=== PATIENT | female | born 1980 | race Caucasian/White ===

== ENCOUNTER 2021-12-02 16:57 | Emergency (ER) | payer SELFPAY ==
[2021-12-02 17:15] VITALS: BP 126/87; PULSE 106; RESP 18; TEMP 36.6; O2SAT 96; BMI 24.5
--- NOTE | 2021-12-02 18:36 | ED_ITS ---
HPI - General Adult General Stated complaint: Finger Infection Time Seen by Provider: 12/02/21 17:44 Source: patient History of Present Illness HPI narrative: Patient is a 41-year-old who says everyone small she just gets annoyed by her fingernails on bites them all off. Few days ago, she bit off all of her fingernails, and then a day or 2 later she noted that she was getting pain around her left middle finger at the cuticle. She did not think a whole lot of it but woke up in the middle the night with throbbing pain in that area. By the next day, she says that it was read and swollen, and today she says that there is discoloration along the cuticle and now the end of her finger is all red and swollen and very tender to touch. No fevers or systemic complaints. Denies other significant medical history. Related Data Previous Rx's Medication Instructions Recorded dextroamphetamine-amphetamine 30 15 mg PO TID #45 tabs 11/01/21 mg tablet Allergies Allergy/AdvReac Type Severity Reaction Status Date / Time Cephalosporins Allergy Mild Verified 09/27/21 13:14 penicillin V Allergy Mild Verified 09/27/21 13:14 Cat hair extract Allergy Mild hives, Uncoded 09/27/21 13:14 sneezing Review of Systems Status of ROS: Reports: 6 or more systems reviewed and unremarkable except as noted in History and below [facility] Social History Smoking Status: Former smoker Exam Narrative: Exam Narrative: Vital signs reviewed In general, an alert, nontoxic woman. Head: Normocephalic, atraumatic. Neck: Supple. Extremities: Examination of the left hand shows a paronychia of the left f negro. She has erythema and swelling of the distal digit, distal to the D IP joint. She has a lot of tenderness of the finger pad as well as the area around the nail bed. The D IP joint itself is uninvolved. Skin: Warm dry well perfused. Const: Vital Signs, click to edit/add: Vital Signs - 24 hr 12/02/21 17:15 Temperature 98 F Pulse Rate [Pulse Oximeter] 106 H Respiratory Rate 18 Blood Pressure [Ri ght Upper Arm] 126/87 Pulse Oximetry 96 Oxygen Delivery Me thod Room Air Course Course Hospital Course: She clearly has a paronychia man associated cellulitis. I am a little concerned she may have a developing felon because of the tenderness she has over the finger pad, but for the time being, I recommended that we I and D the paronychia, start her on antibiotics and see how she does over the next 24 hours. I reviewed with her that if that finger pad area is not improving, she may need additional treatment in the form of an I and D there. However, given that this clearly started as a paronychia, and she has clear purulence there, I am going to drain that area and see if the rest will clear with antibiotics. She is comfortable with that. Procedure note: Area over the paronychia was anesthetized with freezing spray, and then I used a 15. Blade to incise the area with most purulence. Pus was drained, bandage was applied along with some antibacterial ointment. She tolerated this well without immediate complication. She does note that the finger feels significantly better after this drainage, including the finger pad. With her allergy profile, I am going to prescribe doxycycline. Ibuprofen or Tylenol, warm soaks. Return as outlined above. Vital Signs Vital signs: Initial Vital Signs Temperature 98 F 12/02/21 17:15 Temperature Source Temporal Artery Scan 12/02/21 17:15 Pulse Rate 106 H 12/02/21 17:15 Respiratory Rate 18 12/02/21 17:15 Blood Pressure 126/87 12/02/21 17:15 Blood Pressure Mean 100 12/02/21 17:15 Blood Pressure Position Supine 12/02/21 17:15 Pulse Oximetry 96 12/02/21 17:15 Oxygen Delivery Method 12/02/21 17:15 Vital Signs Temperature 98 F 12/02/21 17:15 Pulse Rate 106 H 12/02/21 17:15 Respiratory Rate 18 12/02/21 17:15 Blood Pressure 126/87 12/02/21 17:15 Pulse Oximetry 96 12/02/21 17:15 Oxygen Delivery Method 12/02/21 17:15 Temperature 98 F 12/02/21 17:15 Pulse Rate 106 H 12/02/21 17:15 Respiratory Rate 18 12/02/21 17:15 Blood Pressure 126/87 12/02/21 17:15 Pulse Oximetry 96 12/02/21 17:15 Oxygen Delivery Method 12/02/21 17:15 Discharge Plan Discharge Clinical Impression: Paronychia of finger, Cellulitis Patient Disposition: Home, Self-Care Condition: Improved Instructions: Paronychia (ED), Cellulitis (ED) Additional Instructions: Antibiotic as prescribed. Warm soaks. If your finger is not feeling better over the next 24 hours, return for re-evaluation; you may need additional treatment. Prescriptions: No Action dextroamphetamine-amphetamine 30 mg tablet 15 mg PO TID Qty: 45 0RF Rx Instructions: 15 mg 3x/day, administer doses at least 4-6 hours apart Follow Up/Referrals: Remington Ann MD [Primary Care Provider] - Stand Alone Forms: [employer] Info Instructions
== END 2021-12-02 18:44 | disposition home or self-care (01) ==
LOC: ED 18:40
PROVIDERS: Emergency Provider Emergency Medicine; PCP Family Medicine
DX: L03.012 Cellulitis of left finger (principal)
CPT/HCPCS: 99282; 99283

== ENCOUNTER 2021-12-03 11:01 | Emergency (ER) | payer SELFPAY ==
[2021-12-03 11:04] VITALS: BP 152/124; PULSE 94; RESP 16; TEMP 36.9; O2SAT 96; BMI 24.5
[2021-12-03] MEDS: diphenhydrAMINE 25 MG CAPSULE PO (11:28)
--- NOTE | 2021-12-03 11:54 | ED_ITS ---
HPI - General Adult General Date Seen: 12/03/21 Chief complaint: Allergic Reaction Stated complaint: Allergic reaction to medication hard to swallow Time Seen by Provider: 12/03/21 11:07 Source: patient History of Present Illness HPI narrative: Patient is a 41-year-old who I saw yesterday for of paronychia him on her left 3rd finger. This was incised and drained, and I started her on doxycycline for surrounding cellulitis. She does say the finger is feeling significantly better, but today when at work she says that she started to feel like she was having difficulty swallowing. She became concerned that this was an allergic reaction to the doxycycline. She started to feel dizzy and anxious, presents for possible allergic reaction. Did not take any medications before arrival. No wheezes, hives, rash, vomiting or other symptoms. Related Data Previous Rx's Medication Instructions Recorded dextroamphetamine-amphetamine 30 15 mg PO TID #45 tabs 11/01/21 mg tablet clindamycin HCl 300 mg capsule 300 mg PO TID #21 caps 12/03/21 Allergies Allergy/AdvReac Type Severity Reaction Status Date / Time Cephalosporins Allergy Mild Verified 09/27/21 13:14 penicillin V Allergy Mild Verified 09/27/21 13:14 doxycycline Allergy Verified 12/03/21 11:08 Cat hair extract Allergy Mild hives, Uncoded 09/27/21 13:14 sneezing Review of Systems Status of ROS: Reports: 10 or more systems reviewed and unremarkable except as noted in History and below [facility] Social History Smoking Status: Former smoker Do you use any of these nicotine containing products: None Second hand tobacco smoke exposure: No How often do you have a drink containing alcohol: never How often do you have six or more drinks on one occasion: Never AUDIT-C Alcohol total score: 0 Non-prescribed substance use: denies use service: No Exam Narrative: Exam Narrative: Vital signs as noted above. In general, an alert, well-appearing patient. Head: Normocephalic, atraumatic. Eyes: Pupils are equal reactive. Extraocular movements are full. Conjunctivae are normal. ENT: Mucous membranes are moist. Throat is normal. Neck: Supple without lymphadenopathy. Heart: Regular rate and rhythm. No murmur or rub. Lungs: Clear bilaterally. No increased work of breathing, crackles or wheezes. Abdomen: Soft and nontender. No organomegaly. Extremities: Well perfused. No edema. No calf tenderness. Pulses intact. Neurologic: Patient is alert and oriented to person and place. Speech is fluent. Face is symmetric. Moves all extremities equally. Affect: Normal. Skin: Warm and dry. Well perfused. Const: Vital Signs, click to edit/add: Vital Signs - 24 hr 12/03/21 11:04 Temperature 98.4 F Pulse Rate [Left P ulse Oximeter] 94 Respiratory Rate 16 Blood Pressure [Le ft Upper Arm] 152/124 H Pulse Oximetry 96 Oxygen Delivery Me thod Room Air Documenting provider has reviewed patient's vital signs: yes Course Course Hospital Course: Patient was given 25 mg of oral Benadryl. On exam, no objective findings suggesting allergic reaction, no evidence of intraoral swelling, stridor, wheezing, flushing or hives. Will observe here for a bit. Reevaluation(s) Reevaluation #1: On recheck, patient notes that ?3/4 of her panic attack is improved. She says her chest still feels kind of tight and it still feels kind of hard to swallow, but acknowledges that when she got here she knew that she was started have a panic attack. She says that she just got very scared when her throat got dry and it started to feel hard to swallow. She is comfortable trying some Ativan here to see if we can get better control of her anxiety and panic. I do think this was a significant contributor to her symptoms today and I think she would agree with that. She continues to remain free of any objective findings of allergic reaction. Vital signs are stable. Reevaluation #2: Patient is feeling improved. Much less tearful and anxious. She notes that she has not had a panic attack for about 6 months but this definitely set her off today. She does feel that she was suffering side effects from medication. I do not think I would call this a true allergic reaction. I will switch her to clindamycin because I think she is very uncomfortable with the side effects from the doxycycline. Her finger is feeling significantly improved. If that changes she should come back for re-evaluation. If she were to develop any symptoms of true allergies such as hives, wheezing, etcetera, return for re-evaluation. Vital Signs Vital signs: Initial Vital Signs Temperature 98.4 F 12/03/21 11:04 Temperature Source Temporal Artery Scan 12/03/21 11:04 Pulse Rate 94 12/03/21 11:04 Pulse Rhythm 12/03/21 11:04 Pulse Strength 3+ Normal 12/03/21 11:04 Respiratory Rate 16 12/03/21 11:04 Blood Pressure 152/124 H 12/03/21 11:04 Blood Pressure Mean 133 12/03/21 11:04 Pulse Oximetry 96 12/03/21 11:04 Oxygen Delivery Method 12/03/21 11:04 Vital Signs Temperature 98.4 F 12/03/21 11:04 Pulse Rate 94 12/03/21 11:04 Respiratory Rate 16 12/03/21 11:04 Blood Pressure 152/124 H 12/03/21 11:04 Pulse Oximetry 96 12/03/21 11:04 Oxygen Delivery Method 12/03/21 11:04 Temperature 98.4 F 12/03/21 11:04 Pulse Rate 94 12/03/21 11:04 Respiratory Rate 16 12/03/21 11:04 Blood Pressure 152/124 H 12/03/21 11:04 Pulse Oximetry 96 12/03/21 11:04 Oxygen Delivery Method 12/03/21 11:04 Discharge Plan Discharge Clinical Impression: Medication intolerance, Anxiety Patient Disposition: Home, Self-Care Condition: Improved Instructions: Anxiety (ED) Additional Instructions: Return for new symptoms such as hives, wheezing, etc.. Otherwise, we will switch to clindamycin. If your finger is worsening, return for re-evaluation. Prescriptions: New clindamycin HCl 300 mg capsule 300 mg PO TID Qty: 21 0RF No Action dextroamphetamine-amphetamine 30 mg tablet 15 mg PO TID Qty: 45 0RF Rx Instructions: 15 mg 3x/day, administer doses at least 4-6 hours apart Follow Up/Referrals: Remington Ann MD [Primary Care Provider] - Stand Alone Forms: [employer] Info Instructions
[2021-12-03] MEDS: LORazepam 1 MG TABLET PO (12:10)
== END 2021-12-03 13:10 | disposition home or self-care (01) ==
PROVIDERS: Emergency Provider Emergency Medicine; PCP Family Medicine
DX: F41.9 Anxiety disorder, unspecified (principal); T36.4X5A Adverse effect of tetracyclines, initial encounter; Y92.019 Unspecified place in single-family (private) house as the place of occurrence of the external cause
CPT/HCPCS: 99283; A9270

== ENCOUNTER 2022-12-02 08:56 | Emergency (ER) | payer OTHER, SELFPAY ==
[2022-12-02 09:04] VITALS: BP 128/86; PULSE 70; RESP 18; TEMP 36.6; O2SAT 100; BMI 26.6
--- NOTE | 2022-12-02 09:47 | ED_ITS ---
HPI - General Adult General Date Seen: 12/02/22 Chief complaint: Dizziness/Vertigo Stated complaint: high blood pressure Time Seen by Provider: 12/02/22 09:00 Source: patient Mode of arrival: ambulatory Limitations: no limitations History of Present Illness HPI narrative: Patient is a 42-year-old female presenting to the emergency department for hypertension and lightheadedness. She states she woke up this morning feeling lightheaded and dizzy. Do this she checked her blood pressure which she states was elevated. She checked it multiple times and the Highest she got was 175 systolic. she was concerned so she came to the emergency department to be evaluated because she was still feeling lightheaded. At this time she still feels mildly lightheaded but feels much better compared to earlier. Denies fevers, chills, chest pain, shortness of breath, abdominal pain, diarrhea, constipation. Does states she has low back pain and headache. She has had Back pain and headache like this before she states. Related Data Previous Rx's Medication Instructions Recorded clindamycin HCl 300 mg capsule 300 mg PO TID #21 caps 12/03/21 methylphenidate HCl 36 mg 36 mg PO QAM #30 tabs 08/29/22 tablet,extended release 24 hr lisdexamfetamine 60 mg capsule 60 mg PO QAM #30 caps 10/24/22 (Vyvanse) lisdexamfetamine 20 mg capsule 20 mg PO QAM #30 caps 10/29/22 (Vyvanse) lisdexamfetamine 40 mg capsule 40 mg PO QAM #30 caps 10/29/22 (Vyvanse) Allergies Allergy/AdvReac Type Severity Reaction Status Date / Time Cephalosporins Allergy Mild Verified 09/27/21 13:14 penicillin V Allergy Mild Verified 09/27/21 13:14 doxycycline Allergy Verified 12/03/21 11:08 Cat hair extract Allergy Mild hives, Uncoded 09/27/21 13:14 sneezing Review of Systems Status of ROS: Reports: 10 or more systems reviewed and unremarkable except as noted in History and below [facility] Social History Smoking Status: Former smoker Do you use any of these nicotine containing products: None Second hand tobacco smoke exposure: No How often do you have a drink containing alcohol: never How often do you have six or more drinks on one occasion: Never AUDIT-C Alcohol total score: 0 Non-prescribed substance use: denies use service: No Exam Narrative: Exam Narrative: Const: Well-nourished, Well-developed, in mild distress Eyes: PERRL, no conjunctival injection, and symmetrical lids HENT: Atraumatic external nose and ears. Moist mucous membranes. Neck: Symmetric, trachea midline, No thyromegaly. CVS: RRR, No murmurs or gallops. Peripheral pulses 2+ and equal in all extremities RESP: Unlabored respiratory effort. Clear to auscultation bilaterally. GI: Nontender/Nondistended, No rebound or guarding. MSK:Extremities w/o deformity, Normal Active ROM Skin: Warm, Dry. No rashes or lesions. Neuro: Normal Muscle tone, No focal neurological deficits. Psych: Awake, Alert, & Oriented x3. Appropriate mood and affect. Const: Vital Signs, click to edit/add: Vital Signs - 24 hr 12/02/22 09:04 Temperature 97.9 F Pulse Rate [Right Pulse Oximeter] 70 Respiratory Rate 18 Blood Pressure [Ri ght Upper Arm] 128/86 Pulse Oximetry 100 Oxygen Delivery Me thod Room Air Course Vital Signs Vital signs: Initial Vital Signs Temperature 97.9 F 12/02/22 09:04 Temperature Source Temporal Artery Scan 12/02/22 09:04 Pulse Rate 70 12/02/22 09:04 Respiratory Rate 18 12/02/22 09:04 Blood Pressure 128/86 12/02/22 09:04 Blood Pressure Mean 100 12/02/22 09:04 Blood Pressure Position Sitting 12/02/22 09:04 Pulse Oximetry 100 12/02/22 09:04 Oxygen Delivery Method Room Air 12/02/22 09:04 Vital Signs Temperature 97.9 F 12/02/22 09:04 Pulse Rate 70 12/02/22 09:04 Respiratory Rate 18 12/02/22 09:04 Blood Pressure 128/86 12/02/22 09:04 Pulse Oximetry 100 12/02/22 09:04 Oxygen Delivery Method Room Air 12/02/22 09:04 Temperature 97.9 F 12/02/22 09:04 Pulse Rate 70 12/02/22 09:04 Respiratory Rate 18 12/02/22 09:04 Blood Pressure 128/86 12/02/22 09:04 Pulse Oximetry 100 12/02/22 09:04 Oxygen Delivery Method Room Air 12/02/22 09:04 Medical Decision Making MDM Narrative Medical decision making narrative: patient is a 42-year-old female presenting for lightheadedness and dizziness with hypertension. Blood pressure is now improved and so was her lightheadedness. She was concerned about the symptoms and came in to be evaluated. She states she thinks it might just be her anxiety but is unsure. She is complaining about a headache and low back pain. We will give her Toradol for her pain. We will do an EKG, BMP, CBC, troponin. Patient's pain improved with the Toradol. Lab work returns showing no concerning abnormalities. She was able to take a nap when she is feeling better at this time. Vital signs continued to be stable. Does not appear to be cardiac related. Her symptoms might be related to anxiety and and increased blood pressure from a back pain. At this time she is doing well though and can be discharged home. Lab Data Labs: Lab Results 12/02/22 12/02/22 Range/Units 09:45 09:57 WBC 6.00 (4.50-11.00) K/uL RBC 4.71 (4.00-5.20) m/uL Hgb 12.9 (12.0-16.0) gm/dL Hct 39.3 (33.0-51.0) % MCV 83 (80-100) fL MCH 27 (26-34) pg MCHC 33 (32-36) gm/dL RDW Coeff of Izaiah 14.5 (11.5-15.5) % Plt Count 476 H (140-440) K/uL Neut % (Auto) 66.1 (42.0-72.0) % Lymph % (Auto) 24.5 (20-44) % Lewis % (Auto) 6.5 (0.0-11.0) % Eos % (Auto) 2.2 (0.0-7.0) % Baso % (Auto) 0.7 (0.0-3.0) % Neut # (Auto) 3.97 (1.7-7.0) K/uL Lymph # (Auto) 1.47 (0.90-2.90) K/uL Lewis # (Auto) 0.40 (0.00-0.90) K/UL Eos # (Auto) 0.13 (0.00-0.50) K/uL Baso # (Auto) 0.04 (0.00-0.30) K/uL Abs Immat Gran (auto) 0.00 (0.00-0.30) K/uL Imm/Tot Granulo (auto) 0.0 % Sodium 138 (135-149) mmol/L Potassium 3.8 (3.6-5.1) mmol/L Chloride 100 (96-114) mmol/L Carbon Dioxide 26 (20-32) mmol/L Anion Gap 12 (7-15) mEq/L BUN 14 (5-24) mg/dL Creatinine 0.6 (0.5-1.5) mg/dL Estimated Creat Clear 109.91 Estimated GFR 115 ml/min Glucose 101 (60-115) mg/dL Calcium 10.2 (8.4-10.6) mg/dL POC Troponin I 0.00 L (0.01-0.04) ng/ml ECG Data Attestation: I personally reviewed and interpreted this ECG as follows: Prior ECG tracings: not available for review Interpretation: Normal sinus rhythm the rate 61 beats per minute, normal intervals, normal axis, no ST or T-wave abnormalities Discharge Plan Discharge Clinical Impression: Hypertension Qualifiers: Hypertension type: unspecified Qualified Code(s): I10 - Essential (primary) hypertension Patient Disposition: Home, Self-Care Condition: Stable Instructions: Hypertension (ED) Additional Instructions: Follow-up with the primary care provider symptoms persist. Return for new wors ening symptoms. Prescriptions: No Action clindamycin HCl 300 mg capsule 300 mg PO TID Qty: 21 0RF methylphenidate HCl 36 mg tablet extended release 24hr 36 mg PO QAM Qty: 30 0RF Vyvanse 60 mg capsule 60 mg PO QAM Qty: 30 0RF Vyvanse 20 mg capsule 20 mg PO QAM Qty: 30 0RF Vyvanse 40 mg capsule 40 mg PO QAM Qty: 30 0RF Follow Up/Referrals: Remington Ann MD [Primary Care Provider] - Stand Alone Forms: [facility]
[2022-12-02 09:52] LABS: Basophils Absolute Auto 0.04 K/uL (0.00-0.30); Basophils Percent Auto 0.7 % (0.0-3.0); Eosinophils Absolute Auto 0.13 K/uL (0.00-0.50); Eosinophils Percent Auto 2.2 % (0.0-7.0); Hematocrit 39.3 % (33.0-51.0); Hemoglobin* 12.9 gm/dL (12.0-16.0); Lymphocytes Absolute Auto 1.47 K/uL (0.90-2.90); Lymphocytes Percent Auto 24.5 % (20-44); Mean Corpuscular HGB Conc 33 gm/dL (32-36); Mean Corpuscular Hemoglobin 27 pg (26-34); Mean Corpuscular Volume 83 fL (80-100); Monocytes Percent Auto 6.5 % (0.0-11.0); Neutrophils Absolute Auto 3.97 K/uL (1.7-7.0); Neutrophils Percent Auto 66.1 % (42.0-72.0); Platelet Count* 476 K/uL (140-440); RDW Coefficient of Variation % 14.5 % (11.5-15.5); Red Blood Count 4.71 m/uL (4.00-5.20)
[2022-12-02 09:53] LABS: Slide Review Reflex No
[2022-12-02] MEDS: KETOROLAC 15 MG/ML inj IVP (10:02)
[2022-12-02 10:07] LABS: Chloride* 100 mmol/L (96-114); Sodium* 138 mmol/L (135-149)
[2022-12-02 10:08] LABS: Potassium* 3.8 mmol/L (3.6-5.1)
[2022-12-02 10:10] LABS: Anion Gap 12 mEq/L (7-15); Blood Urea Nitrogen* 14 mg/dL (5-24); Carbon Dioxide* 26 mmol/L (20-32); Creatinine* 0.6 mg/dL (0.5-1.5); Est. Creatinine Clearance* 109.91; Estimated Glomerular Filt Rate 115 ml/min
[2022-12-02 10:11] LABS: Calcium* 10.2 mg/dL (8.4-10.6); Glucose* 101 mg/dL (60-115)
[2022-12-02 11:00] VITALS: BP 137/102; PULSE 70; RESP 18; O2SAT 98
== END 2022-12-02 11:02 | disposition home or self-care (01) ==
PROVIDERS: Emergency Provider Student in an Organized Health Care Education/Training Program; PCP Family Medicine
DX: I10 Essential (primary) hypertension (principal)
CPT/HCPCS: 36415; 80048; 84484; 85025; 93005; 96374; 99283; J1885

== ENCOUNTER 2023-12-31 07:50 | Outpatient (CLI) | payer OTHER, SELFPAY | END 2023-12-31 07:51 | disposition home or self-care (01) | PROVIDERS: PCP Family Medicine; Referring Provider Family Medicine; Visit Provider Registered Nurse | DX: Z01.419 Encounter for gynecological examination (general) (routine) without abnormal findings (principal); F41.9 Anxiety disorder, unspecified; Z13.6 Encounter for screening for cardiovascular disorders; Z13.1 Encounter for screening for diabetes mellitus; Z13.29 Encounter for screening for other suspected endocrine disorder | CPT/HCPCS: 80053; 80061; 84443 ==

== ENCOUNTER 2024-01-01 09:44 | Outpatient (CLI) | payer OTHER, SELFPAY ==
[2024-01-03 14:38] LABS: HPV Source Cervical; HPV, High Risk by TMA Not Detected
== END 2024-01-01 09:45 | disposition home or self-care (01) ==
PROVIDERS: PCP Family Medicine; Visit Provider Obstetrics & Gynecology
DX: Z01.419 Encounter for gynecological examination (general) (routine) without abnormal findings (principal); Z12.4 Encounter for screening for malignant neoplasm of cervix; Z11.51 Encounter for screening for human papillomavirus (HPV)
CPT/HCPCS: 87624; 87625; 88141; 88142

== ENCOUNTER 2024-01-07 09:24 | Outpatient (CLI) | payer OTHER, SELFPAY ==
--- NOTE | 2024-01-07 09:45 | CRLHL7_ITS ---
For Patients: As a result of the Century Cures Act, medical imaging exams and procedure reports are released immediately into your electronic medical record. You may view this report before your referring provider. If you have questions, please contact your health care provider. BILATERAL SCREENING MAMMOGRAM WITH COMPUTER-AIDED DETECTION AND TOMOSYNTHESIS TECHNIQUE: CC and MLO views were obtained. These mammographic images have been obtained using full-field digital technique. These mammographic images were interpreted with the benefit of computer-aided detection. Breast Tomosynthesis was used in this interpretation. COMPARISON FILM: Baseline. FINDINGS: There are scattered areas of fibroglandular density. IMPRESSION: There is no radiographic evidence for malignancy. ASSESSMENT: BI-RADS Category 1: Negative RECOMMENDATION: Routine screening mammogram in 1 year. A lay language report of this examination will be provided to the patient. Crispin Horta M.D. Diagnostic Radiologist [email or web address] SP/Dictated by: Crispin Horta MD @ 01/13/2024 10:42:00 AM (Electronically Signed)
== END 2024-01-07 09:25 | disposition home or self-care (01) ==
LOC: MAMMO 09:25
PROVIDERS: PCP Registered Nurse; Visit Provider Registered Nurse
DX: Z12.31 Encounter for screening mammogram for malignant neoplasm of breast (principal)
CPT/HCPCS: 77063; 77067